=== PATIENT | male | born 1995 | race American Indian/Alaskan Native ===

== ENCOUNTER 2019-03-21 16:54 | Emergency (ER) | payer SELFPAY ==
--- NOTE | 2019-03-21 20:23 | Emergency Department Report ---
ED General Adult HPI - General Chief complaint: Upper Respiratory Infection Stated complaint: SKIN IRRITATION ON FACE/STINGING PAIN Time Seen by Provider: 03/21/19 20:10 Source: patient Mode of arrival: Ambulatory Limitations: No Limitations - History of Present Illness Initial comments: Patient is a 23-year-old male who presents to emergency room with complaints of a rash to his nose and cheeks that began 2 days ago. He states it itches and staples. He states he has had associated cold symptoms including rhinorrhea. he states he has had this in the past whenever he gets cold symptoms but it was not as bad. States it eventually goes away on its own after a scabbing over. Denies any other symptoms or fever. He denies any past medical history or allergies to medications. - Related Data Previous Rx's Medication Instructions Recorded Last Taken Type Acyclovir [Zovirax Tab] 800 mg PO BID 5 Days #10 tab 03/21/19 Unknown Rx Allergies Allergy/AdvReac Type Severity Reaction Status Date / Time No Known Allergies Allergy Unverified 03/21/19 17:20 ED Review of Systems ROS: Stated complaint: SKIN IRRITATION ON FACE/STINGING PAIN Other details as noted in HPI Comment: All other systems reviewed and negative ED Past Medical Hx - Past Medical History Previous Medical History?: No - Surgical History Past Surgical History?: No - Social History Smoking Status: Never Smoker Substance Use Type: None - Medications Home Medications: Home Medications Medication Instructions Recorded Confirmed Last Taken Type Acyclovir [Zovirax Tab] 800 mg PO BID 5 Days #10 tab 03/21/19 Unknown Rx ED Physical Exam - General Limitations: No Limitations General appearance: alert, in no apparent distress - Head Head exam: Present: atraumatic, normocephalic - Eye Eye exam: Present: normal appearance, PERRL, EOMI. Absent: periorbital swelling, periorbital tenderness - ENT ENT exam: Present: normal orophraynx - Respiratory Respiratory exam: Present: normal lung sounds bilaterally. Absent: respiratory distress, wheezes, rales, rhonchi, stridor, accessory muscle use, decreased breath sounds, prolonged expiratory - Cardiovascular Cardiovascular Exam: Present: regular rate, normal rhythm, normal heart sounds. Absent: systolic murmur, diastolic murmur, rubs, gallop - Neurological Exam Neurological exam: Present: alert, oriented X3 - Psychiatric Psychiatric exam: Present: normal affect, normal mood - Skin Skin exam: Present: warm, dry, other (fluid filled vesicles with surrounding erythema present to the cheeks, nose, and inside the nares) ED Course Vital Signs 03/21/19 03/21/19 18:25 20:37 Temperature 98.3 F 98.9 F Pulse Rate 56 L 68 Respiratory 16 16 Rate Blood Pressure 140/75 Blood Pressure 123/79 [Right] O2 Sat by Pulse 97 99 Oximetry ED Medical Decision Making - Medical Decision Making Patient is a 23-year-old male who presents to emergency room with complaints of a rash to his nose and cheeks that began 2 days ago. He states it itches and staples. He states he has had associated cold symptoms including rhinorrhea. he states he has had this in the past whenever he gets cold symptoms but it was not as bad. States it eventually goes away on its own after a scabbing over. Denies any other symptoms or fever. He denies any past medical history or allergies to medications. on exam: fluid filled vesicles with surrounding erythema present to the cheeks, nose, and inside the nares. examination appears consistent with herpes simplex virus. pt given prescription for acyclovir. advised to please take medication as prescribed. please follow up with a primary care doctor or the health department to receive further testing. it appears to be a herpes simplex virus infection will need further testing for confirmation, will treat as such today. received paperwork on oral herpes simplex virus infection although yours is from the nasal mucosal surface, treatment is the same. return to the emergency room for any new or worsening symptoms. Critical care attestation.: If time is entered above; I have spent that time in minutes in the direct care of this critically ill patient, excluding procedure time. ED Disposition Clinical Impression: Rash Disposition: [id number] TO HOME OR SELFCARE Is pt being admited?: No Does the pt Need Aspirin: No Condition: Stable Instructions: Oral Herpes Simplex Virus Infections (ED), Acute Rash (ED) Additional Instructions: please take medication as prescribed. please follow up with a primary care doctor or the health department to receive further testing. it appears to be a herpes simplex virus infection will need further testing for confirmation, will treat as such today. received paperwork on oral herpes simplex virus infection although yours is from the nasal mucosal surface, treatment is the same. return to the emergency room for any new or worsening symptoms. Prescriptions: Acyclovir [Zovirax Tab] 800 mg PO BID 5 Days #10 tab Referrals: JOSE BRAVO MD [Primary Care Provider] - 2-3 Days [facility] [Outside] - 2-3 Days [facility] [Outside] - 2-3 Days [facility] [Outside] - 2-3 Days Forms: Work/School Release Form(ED) Time of Disposition: 20:23 Print Language: ESTONIAN
[2019-03-21 20:39] VITALS: BP 123/79
== END 2019-03-21 20:37 | disposition home or self-care (01) ==
LOC: ED 16:54
DX: R21 Rash and other nonspecific skin eruption (principal); L29.9 Pruritus, unspecified; J34.89 Other specified disorders of nose and nasal sinuses
CPT/HCPCS: 99282